=== PATIENT | female | born 1975 | race Caucasian/White ===

== ENCOUNTER 2025-01-12 21:37 | Emergency (ER) | payer MEDICAID ==
[~2025-01-12] VITALS: Ht 170.2 cm; Wt 71.3 kg
[2025-01-12 21:44] VITALS: O2SAT 99
[2025-01-12] MEDS: IBUPROFEN 600MG TABLET PO ONE (22:28)
[2025-01-12] MEDS: TRAMADOL 50MG TABLET PO ONE (22:28)
[2025-01-12 23:09] LABS: GLUCOSE URINE NEGATIVE (NEGATIVE); KETONES URINE NEGATIVE (NEGATIVE); LEUKOCYTE ESTERASE URINE NEGATIVE (NEGATIVE); NITRITE URINE NEGATIVE (NEGATIVE); OCCULT BLOOD URINE TRACE (NEGATIVE); PH URINE 5.0 (4.5-8.0); PROTEIN URINE NEGATIVE (NEGATIVE); SPECIFIC GRAVITY URINE 1.021 (1.005-1.030); UROBILINOGEN URINE 1.0 E.U./dL (0.2-1.0)
[2025-01-12 23:26] LABS: COLOR URINE STRAW (YELLOW)
[2025-01-12 23:27] LABS: BACTERIA URINE NONE SEEN; RBC URINE 0-2 /hpf (0-2); SQUAMOUS EPITHELIAL CELL URINE 1+ /lpf (RARE/1+); WBC URINE 0-2 /hpf (0-2)
[2025-01-12 23:28] LABS: CLARITY URINE SL HAZY (CLEAR)
[2025-01-12] MEDS ORDERED: ONDA-239 PO (23:45)
[2025-01-12] MEDS ORDERED: IBUP-1455 MT (23:45)
[2025-01-12] MEDS ORDERED: TRAM50TA3 MT (23:55)
[2025-01-12 23:56] VITALS: BP 115/66; PULSE 63; RESP 16; TEMP 36.6; O2SAT 98
== END 2025-01-12 23:58 | disposition home or self-care (01) ==
LOC: ER 21:37
DX: K80.70 Calculus of gallbladder and bile duct without cholecystitis without obstruction (principal); Z79.899 Other long term (current) drug therapy
CPT/HCPCS: 74176; 76705; 81003; 81025; 99284